=== PATIENT | female | born 1980 | race Two or more races ===

== ENCOUNTER 2018-05-15 17:33 | Emergency (ER) | payer MEDICAID ==
[~2018-05-15] VITALS: Ht 160 cm; Wt 69.4 kg
[2018-05-15 17:33] VITALS: BP 118/86
[2018-05-15] MEDS ORDERED: ACETAMINOPHEN ES 500 MG TABLET ONE (18:23)
[2018-05-15] MEDS ORDERED: ACETAMINOPHEN 325 MG TABLET PO ONE (18:30)
== END 2018-05-15 20:29 | disposition home or self-care (01) ==
LOC: ER 17:35
DX: S13.8XXA Sprain of joints and ligaments of other parts of neck, initial encounter (principal); V49.49XA Driver injured in collision with other motor vehicles in traffic accident, initial encounter; Y93.89 Activity, other specified; Y92.410 Unspecified street and highway as the place of occurrence of the external cause; Y99.8 Other external cause status
CPT/HCPCS: 72040; 99283; A4606

== ENCOUNTER 2022-07-06 10:24 | Emergency (ER) | payer MEDICAID ==
[~2022-07-06] VITALS: Ht 160 cm; Wt 49.4 kg
[2022-07-06] MEDS ORDERED: diphenhydrAMINE HCL 50 MG/ML VIAL ONE ×2 (10:39→12:16)
[2022-07-06] MEDS ORDERED: LORAZEPAM INJ 2 MG/ML VIAL ONE (10:40)
[2022-07-06] MEDS ORDERED: HALOPERIDOL LACTATE INJ 5 MG/ML VIAL ONE ×2 (10:40→12:16)
[2022-07-06 10:56] LABS: BASOPHILS % (AUTO) 0.3 % (0.0-2.0); EOSINOPHILS % (AUTO) 0.1 % (0.0-6.0); HEMATOCRIT 35 % (33-45); HEMOGLOBIN 11.6 g/dL (11.5-14.8); LYMPHOCYTES # (AUTO) 1.2 K/uL (0.8-4.8); LYMPHOCYTES % (AUTO) 10.4 % (20.0-44.0); MEAN CORPUSCULAR HGB CONC 33 g/dl (31.0-36.0); MEAN CORPUSCULAR VOLUME 95 fL (82-100); MONOCYTES # (AUTO) 0.7 K/uL (0.1-1.30); MONOCYTES % (AUTO) 6.5 % (2.0-12.0); NEUTROPHILS # (AUTO) 9.4 K/uL (1.8-8.9); NEUTROPHILS % (AUTO) 82.7 % (43.0-81.0); PLATELET COUNT (AUTO) 337 K/uL (150-450); RED BLOOD CELL COUNT(AUTO) 3.69 MIL/uL (4.0-5.2); WHITE BLOOD COUNT (AUTO) 11.4 K/uL (4.3-11.0)
--- NOTE | 2022-07-06 10:56 | NUR ---
URINE COLLECTED AND SENT TO LAB
[2022-07-06] MEDS ORDERED: LORAZEPAM INJ 2 MG/ML VIAL IM ONE (11:00)
[2022-07-06] MEDS ORDERED: HALOPERIDOL LACTATE INJ 5 MG/ML VIAL IM ONE ×2 (11:00→12:00)
[2022-07-06] MEDS ORDERED: diphenhydrAMINE HCL 50 MG/ML VIAL IM ONE ×2 (11:00→12:00)
[2022-07-06 11:09] LABS: ALANINE AMINOTRANSFERASE 45 U/L (12-78); ALBUMIN 4.3 g/dL (3.4-5.0); ALCOHOL, BLOOD < 3 mg/dL (0-0); ALKALINE PHOSPHATASE 61 U/L (46-116); ASPARTATE AMINOTRANSFERASE 52 U/L (15-37); BILIRUBIN,DIRECT 0.2 mg/dL (0.0-0.2); BILIRUBIN,TOTAL 0.7 mg/dL (0.2-1.0); CARBON DIOXIDE 19 mmol/L (21-32); CHLORIDE 108 mmol/L (98-107); CREATININE 1.5 mg/dL (0.6-1.3); GLUCOSE 126 mg/dL (74-106); POTASSIUM 3.5 mmol/L (3.5-5.1); SODIUM SERUM 144 mmol/L (136-145); TOTAL PROTEIN, SERUM 7.5 g/dL (6.4-8.2); UREA NITROGEN, BLOOD 16 mg/dL (7-18)
[2022-07-06 11:18] LABS: ACETAMINOPHEN < 10 ug/ml (10-30)
[2022-07-06 12:28] LABS: BILIRUBIN,URINE 2+ (NEGATIVE); COLOR,URINE DARK YELLOW (YELLOW); LEUKOCYTE ESTERASE ,URINE NEGATIVE (NEGATIVE); NITRITE, URINE NEGATIVE (NEGATIVE); PH,URINE 5.5 (5.0-8.0); PROTEIN,URINE 3+ mg/dl (NEGATIVE); UGLUCOSE NEGATIVE (NEGATIVE)
[2022-07-06 12:32] LABS: BACTERIA,URINE Few /HPF (None Seen); RBC,URINE 0-2 /HPF (0-2); SQUAMOUS EPITHELIAL CELL,UR Many /HPF (None Seen)
--- NOTE | 2022-07-06 12:43 | NUR ---
CALLED ART WILL SEE PATIENT AFTER 1500 ALLOWING HER TO REST.
--- NOTE | 2022-07-06 23:10 | NUR ---
CRISIS TEAM AT BEDSIDE.
[2022-07-07] MEDS ORDERED: OLANZAPINE 10 MG VIAL IM ONE ×2 (00:03)
--- NOTE | 2022-07-07 07:18 | NUR ---
REPORT GIVEN TO SHAN ALCANTAR FOR CONTINUITY OF CARE.
[2022-07-07] MEDS: OLANZAPINE ZYDIS 5 MG TAB.RAPDIS PO SCH ×2 (14:00→19:48)
[2022-07-07] MEDS ORDERED: OLANZAPINE 5 MG TABLET ONE ×2 (14:16→19:46)
--- NOTE | 2022-07-07 15:01 | NUR ---
FAXED CLINICALS TO [facility] [phone]
--- NOTE | 2022-07-08 08:50 | NUR ---
9796 HOLD FAXED TO [facility]
--- NOTE | 2022-07-08 09:34 | NUR ---
COURTNEY called [facility] tel [phone] and spoke to intake who stated they have no beds at this time, but possibly later.
--- NOTE | 2022-07-08 10:18 | NUR ---
COURTNEY followed up with referrals for placement: [facility]- no beds, [facility]- no beds [facility]- No beds, [facility]- No answer, [facility] refaxed clinicals tel:[phone] FAX:[phone] [facility]- no beds at this time, possible discharged later. [facility] [phone] fax: [phone] [facility] TEL: [phone] Intake [facility] [place] tel:[phone]; 4 FAX: [phone]
--- NOTE | 2022-07-08 11:14 | NUR ---
COLLIN OF [facility] WANT PCR TEST , SHE SAID SHE WILL TAKE THE PATIENT WITH PENDING RESULT.
--- NOTE | 2022-07-08 12:00 | NUR ---
COURTNEY refaxed Rapid COVID test to [facility] Unit TEL: [phone] Intake per intake's request
--- NOTE | 2022-07-08 12:47 | NUR ---
[facility] called with acceptance info [facility] [address] under the care of dr. sullivan number for report [phone]
--- NOTE | 2022-07-08 14:29 | NUR ---
report given to EMT transport for [facility]
--- NOTE | 2022-07-08 16:12 | NUR ---
TAKEN BY TRANSPORT SAFELY , GOING TO PSYCH FACILITY
[2022-07-08 16:13] VITALS: BP 126/77
--- NOTE | 2022-07-08 17:33 | NUR ---
REPORT GIVEN TO MARCY TORREZ AT [facility]
== END 2022-07-08 16:14 ==
LOC: ER 10:51
DX: R45.851 Suicidal ideations (principal); Z20.822 Contact with and (suspected) exposure to COVID-19
CPT/HCPCS: 99285; 96372 ×3; 85025; 80048; 80076; 84703 ×2; 81001; 36415; 87426; 80143; 80320; 80307; J2060; J1200 ×2; J1630 ×2; C9803; J3490; G0480; U0003